=== PATIENT | female | born 1960 | race Caucasian/White ===

== ENCOUNTER → 2020-04-07 13:58 | Outpatient (CLI) | payer OTHER, SELFPAY ==
--- NOTE | ~2020-04-07 | US_ITS ---
EXAMINATION: US thyroid DATE: 04/07/2020 14:32 INDICATION: Goiter. TECHNIQUE: Multiple ultrasound images of the thyroid were obtained. COMPARISON: Thyroid ultrasound 01/01/2019 FINDINGS: The right thyroid lobe measures 3.9 x 1.3 x 1.2 cm. The left thyroid lobe measures 4.1 x 1.2 x 1.4 c m. In the right thyroid lobe, there is a 9 mm solid, very hypoechoic, agrdo-fvbr-sndh nodule with il l-defined margin without echogenic foci (TI-RADS TR4). In the left thyroid lobe, there is a 1.4 cm so lid, hypoechoic, gkcme-qnjg-wshy nodule with ill-defined margin without echogenic foci (TR4). These f indings were not described on the prior ultrasound, but the thyroid was diffusely heterogeneous on th e prior ultrasound. IMPRESSION: 1. Thyroid nodules. Thyroid ultrasound is recommended in one year. Reviewed, dictated and finalized at location B.
== END ==
PROVIDERS: PCP Family Medicine; Visit Provider Internal Medicine Endocrinology, Diabetes & Metabolism
DX: E04.2 Nontoxic multinodular goiter (principal)
CPT/HCPCS: 76536

== ENCOUNTER → 2020-06-02 10:41 | Outpatient (CLI) | payer OTHER, SELFPAY ==
--- NOTE | ~2020-06-02 | MM_ITS ---
EXAMINATION: MM screening [facility] w shanae HISTORY: Screening TECHNIQUE: Craniocaudal and mediolateral oblique 3-D tomosynthesis images were obtained and synthetic 2-D images were generated. CAD analysis was submitted and interpreted. COMPARISON: Comparison to multiple prior studies sequentially, with oldest reviewed study dated 05/26. BREAST PARENCHYMAL COMPOSITION: There are scattered areas of fibroglandular density. FINDINGS: Stable right breast asymmetry with adjacent tissue marker. There is no evidence of suspicio us mass, calcification, or architectural distortion to suggest malignancy in either breast. There has been no suspicious interval change. IMPRESSION: 1. No mammographic evidence of malignancy. 2. Recommend routine screening mammography in one year. BI-RADS Category 1: Negative Reviewed, dictated and finalized at location A.
== END ==
PROVIDERS: PCP Family Medicine; Visit Provider Obstetrics & Gynecology
DX: Z12.31 Encounter for screening mammogram for malignant neoplasm of breast (principal)
CPT/HCPCS: 77063; 77067

== ENCOUNTER → 2022-06-21 13:20 | Outpatient (CLI) | payer OTHER, SELFPAY ==
--- NOTE | ~2022-06-21 | MM_ITS ---
EXAMINATION: MM screening [facility] BI w shanae HISTORY: Screening mammogram TECHNIQUE: Craniocaudal and mediolateral oblique 3-D tomosynthesis images were obtained and synthetic 2-D images were generated. CAD analysis was submitted and interpreted. COMPARISON: 06/02/2020, 01/13/2019, 10/25/2016, 10/16/2016 BREAST PARENCHYMAL COMPOSITION: The breasts are heterogeneously dense, which may obscure small masses . FINDINGS: There is a stable mass with biopsy change in the lower inner right breast. No suspicious ma ss, calcification, or architectural distortion are identified in either breast to suggest malignancy. There has been no suspicious interval change. IMPRESSION: 1. No mammographic evidence of malignancy. 2. Recommend routine screening mammography in one year. BI-RADS Category 2: Benign finding(s). Reviewed, dictated and finalized at location A.
--- NOTE | ~2022-06-21 | DEXA_ITS ---
Bone Density Report Name: RUBIO CABRERA Age: 61 Sex: Female Ethnicity: White Date of : 1960 Indication: osteopenia; height loss; hysterectomy; postmenopausal Referring Provider: Shagufta Carlson Study: Bone densitometry was performed. Exam Date: June 21, 2022 Accession number: [id number] Bone Density: Region BMD T-score Z-score Classification AP Spine (L1-L4) 0.912 -1.2 0.4 Osteopenia Femoral Neck (Left) 0.549 -2.7 -1.3 Osteoporosis Total Hip (Left) 0.749 -1.6 -0.5 Osteopenia Femoral Neck (Right) 0.571 -2.5 -1.1 Osteoporosis Total Hip (Right) 0.780 -1.3 -0.2 Osteopenia Total Hip Mean 0.765 -1.5 -0.4 Osteopenia World Health Organization criteria for BMD impression classify patients as: Normal (T-score at or above -1.0), Osteopenia (T-score between -1.0 and -2.5), or Osteoporosis (T-score at or below -2.5). 10-year Fracture Risk: FRAX not reported because: Some T-score for Spine Total or Hip Total or Femoral Neck at or below -2.5 Previous Exams: Region Exam Age BMD T-score BMD Change BMD Change Date g/cm2 vs Baseline vs Previous AP Spine(L1-L4) 06/21/2022 61 0.912 -1.2 -0.071* -0.006 04/06/2019 58 0.918 -1.2 -0.065* -0.065* 10/08/2012 51 0.984 -0.6 Total Hip(Left) 06/21/2022 61 0.749 -1.6 -0.157* -0.021 04/06/2019 58 0.769 -1.4 -0.136* -0.136* 10/08/2012 51 0.906 -0.3 Total Hip(Right) 06/21/2022 61 0.780 -1.3 -0.121* -0.041* 04/06/2019 58 0.821 -1.0 -0.081* -0.081* 10/08/2012 51 0.901 -0.3 *Denotes significance at 95% confidence level, LSC for AP Spine = 0.022 g/cm2, LSC for Total Hip = 0.027 g/cm2 Clinical Information Provided by Patient: Has the following medical conditions: Hysterectomy Patient maximum height was 65 Menopause Age: 49 No regular weight bearing exercise Drinks caffeinated beverages Onset of menses at age 11 Number of children 2 Impression: The patient has osteoporosis, based on the Left Femoral Neck T-score. The BMD for the Total Hip(Right) decreased, changing by -0.041 since the last DXA exam. Discussion: INCREASED RISK OF FRACTURE. BONE DENSITY IS UNDESIRABLY LOW AT ONE OR MORE SKELETAL SITES, CONSISTENT WITH POSTMENOPAUSAL OSTEOPOROSIS. This patient's lowest T-score meets the World Health Organization's (WHO) criteria for osteoporosis at one or more sites (T-score -2.5 or below). In
== END ==
PROVIDERS: PCP Obstetrics & Gynecology; Visit Provider Family Medicine
DX: Z12.31 Encounter for screening mammogram for malignant neoplasm of breast (principal); Z78.0 Asymptomatic menopausal state; M85.89 Other specified disorders of bone density and structure, multiple sites; M81.0 Age-related osteoporosis without current pathological fracture
CPT/HCPCS: 77063; 77067; 77080

== ENCOUNTER → 2022-07-15 10:36 | Outpatient (CLI) | payer OTHER, SELFPAY ==
--- NOTE | ~2022-07-15 | XR_ITS ---
EXAMINATION: [id number] Exam Date/Time: 07/15/2022 11:00 BIOCHEMISTRY TECHNOLOGIST HISTORY: ANTERIOR LEFT RIB PAIN AFTER FALL 2 WKS AGO Comparison: None available. RESULT: Lines, tubes, and devices: Surgical clips in the right lower neck. Lungs and pleura: Clear. Cardiomediastinal silhouette: Unremarkable. Other: No acute upper abdominal finding. Mild cortical irregularity of the left eighth anterior rib IMPRESSION: Nondisplaced left eighth anterior rib fracture. Reviewed, dictated and finalized at location K. HEMISTRY TECHNOLOGIST
== END ==
PROVIDERS: PCP Family Medicine; Visit Provider Family Medicine
DX: R07.81 Pleurodynia (principal); S22.32XA Fracture of one rib, left side, initial encounter for closed fracture
CPT/HCPCS: 71101

== ENCOUNTER → 2023-01-03 14:53 | Outpatient (CLI) | payer OTHER, SELFPAY ==
--- NOTE | ~2023-01-03 | XR_ITS ---
EXAMINATION: XR chest 2V 01/03/2023 15:13 INDICATION: Shortness of breath PROCEDURE: 2 view chest COMPARISON: 07/15/2022 FINDINGS: The lungs are clear. The cardiomediastinal silhouette is within normal limits. There are no pleural effusions. There is no pneumothorax suspected. IMPRESSION: 1: NO ACUTE CARDIOPULMONARY DISEASE. Reviewed, dictated and finalized at location B.
== END ==
PROVIDERS: PCP Family Medicine; Visit Provider Nurse Practitioner Family
DX: J40 Bronchitis, not specified as acute or chronic (principal); R06.02 Shortness of breath
CPT/HCPCS: 71046

== ENCOUNTER → 2023-07-29 15:32 | Outpatient (CLI) | payer OTHER, SELFPAY ==
--- NOTE | ~2023-07-29 | XR_ITS ---
Right foot Technique: AP, oblique, and lateral views were obtained. Clinical History: Polyarthralgia Findings: No acute fracture or dislocation is seen. Hallux valgus noted. Joint spaces are preserved w ithout erosive or degenerative change. Soft tissues are unremarkable. Impression: Hallux valgus. Reviewed, dictated and finalized at location . ISH PROFESSOR Impression: Hallux valgus.
--- NOTE | ~2023-07-29 | XR_ITS ---
Right Hand Technique: PA, oblique, and lateral views were obtained. Clinical History: Polyarthralgia Findings: No acute fracture or dislocation is seen. There is advanced osteoarthritis throughout the p roximal interphalangeal joints of the hand, as well as the interphalangeal joint of the thumb. There are mild degenerative changes of the DIP joints. Soft tissues are unremarkable. Impression: Advanced osteoarthritis throughout the PIP joints and interphalangeal joint of the thumb. Minimal degenerative change of the DIP joints. Reviewed, dictated and finalized at location M. L INSPECTOR BALANCE WHEEL Impression: Advanced osteoarthritis throughout the PIP joints and interphalangeal joint of the thumb. Minimal degenerative change of the DIP joints.
--- NOTE | ~2023-07-29 | XR_ITS ---
Left foot Technique: AP, oblique, and lateral views were obtained. Clinical History: Polyarthralgia Findings: No acute fracture or dislocation is seen. Hallux valgus noted, with mild degenerative meraz e of the first MTP joint region. Remaining joint spaces are preserved without erosive or degenerative change. Soft tissues are unremarkable. Impression: Hallux valgus comment with mild degenerative change at the first MTP joint region. Reviewed, dictated and finalized at location M. RICT ASSOCIATE JUDGE Impression: Hallux valgus comment with mild degenerative change at the first MTP joint joanna on.
--- NOTE | ~2023-07-29 | XR_ITS ---
Left Hand Technique: PA, oblique, and lateral views were obtained. Clinical History: Polyarthralgia Findings: No acute fracture or dislocation is seen. There is advanced osteoarthritis throughout the p roximal and distal interphalangeal joints of the hand, with possible element of erosive osteoarthriti s noted. Soft tissues are unremarkable. Impression: Advanced osteoarthritis throughout the interphalangeal joints of the hand, with possible element of e rosive osteoarthritis present. Reviewed, dictated and finalized at location M. R Impression: Advanced osteoarthritis throughout the interphalangeal joints of the hand, with possible element of erosive osteoarthritis present.
== END ==
DX: M19.042 Primary osteoarthritis, left hand (principal); M19.041 Primary osteoarthritis, right hand; M20.12 Hallux valgus (acquired), left foot; M20.11 Hallux valgus (acquired), right foot
CPT/HCPCS: 73130; 73630

== ENCOUNTER 2023-11-17 13:50 | Outpatient (CLI) | payer BC, SELFPAY ==
--- NOTE | ~2023-11-17 | MM_ITS ---
EXAMINATION: MM screening [facility] w shanae HISTORY: Screening mammogram TECHNIQUE: Craniocaudal and mediolateral oblique 3-D tomosynthesis images were obtained and synthetic 2-D images were generated. CAD analysis was submitted and interpreted. COMPARISON: 06/21/2022, 06/02/2020, 01/13/2019 bilateral screening mammogram examinations BREAST PARENCHYMAL COMPOSITION: There are scattered areas of fibroglandular density. FINDINGS: Biopsy marker on the right; history of 3 prior benign right breast biopsies. There is no ev idence of suspicious mass, calcification, or architectural distortion to suggest malignancy in either breast. There has been no suspicious interval change. IMPRESSION: 1. No mammographic evidence of malignancy. 2. Recommend routine screening mammography in one year. BI-RADS Category 1: Negative Reviewed, dictated and finalized at location A.
== END 2023-11-17 13:51 ==
LOC: MICIMG 13:52
PROVIDERS: PCP Family Medicine; Visit Provider Obstetrics & Gynecology
DX: Z12.31 Encounter for screening mammogram for malignant neoplasm of breast (principal)
CPT/HCPCS: 77063; 77067

== ENCOUNTER 2025-03-08 14:10 | Outpatient (CLI) | payer MEDICARE, SELFPAY ==
--- NOTE | ~2025-03-08 | MM_ITS ---
EXAMINATION: MM screening [facility] w shanae HISTORY: Screening TECHNIQUE: Craniocaudal and mediolateral oblique 3-D tomosynthesis images were obtained and synthetic 2-D images were generated. CAD analysis was submitted and interpreted. COMPARISON: Comparison to multiple prior studies sequentially, with oldest reviewed study dated 10/16. BREAST PARENCHYMAL COMPOSITION: Not dense: There are scattered areas of fibroglandular density. FINDINGS: There is no evidence of suspicious mass, calcification, or architectural distortion to sugg est malignancy in either breast. There has been no suspicious interval change. IMPRESSION: 1. No mammographic evidence of malignancy. 2. Recommend routine screening mammography in one year. BI-RADS Category 1: Negative Reviewed, dictated and finalized at location B.
== END 2025-03-08 14:11 | disposition home or self-care (01) ==
PROVIDERS: PCP Obstetrics & Gynecology; Visit Provider Nurse Practitioner
DX: Z12.31 Encounter for screening mammogram for malignant neoplasm of breast (principal)
CPT/HCPCS: 77063; 77067

== ENCOUNTER 2025-07-05 09:19 | Outpatient (CLI) | payer MEDICARE, SELFPAY ==
--- NOTE | ~2025-07-05 | DEXA_ITS ---
Bone Density Report Name: RUBIO CABRERA Age: 64 Sex: Female Ethnicity: White Date of : 1960 Indication: osteopenia; monitoring treatment; height loss; cancer; hysterectomy; Referring Provider: Shagufta Carlson Study: Bone densitometry was performed. Exam Date: July 05, 2025 Accession number: [id number] Bone Density: Region BMD T-score Z-score Classification AP Spine(L1-L4) 0.915 -1.2 0.6 Osteopenia Femoral Neck (Left) 0.542 -2.8 -1.2 Osteoporosis Total Hip (Left) 0.748 -1.6 -0.3 Osteopenia Femoral Neck (Right) 0.536 -2.8 -1.3 Osteoporosis Total Hip (Right) 0.758 -1.5 -0.3 Osteopenia Total Hip Mean 0.753 -1.6 -0.3 Osteopenia World Health Organization criteria for BMD impression classify patients as: Normal (T-score at or above -1.0), Osteopenia (T-score between -1.0 and -2.5), or Osteoporosis (T-score at or below -2.5). 10-year Fracture Risk: FRAX not reported because: Some T-score for Spine Total or Hip Total or Femoral Neck at or below -2.5 Treated for osteoporosis Previous Exams: -- Region Exam Age BMD T-score BMD Change BMD Change Date g/cm2 vs Baseline vs Previous -- AP Spine (L1-L4) 07/05/2025 64 0.915 -1.2 -7.0%* 0.3% 06/21/2022 61 0.912 -1.2 -7.3%* -0.7% 04/06/2019 58 0.918 -1.2 -6.6%* -6.6%* 10/08/2012 51 0.984 -0.6 Total Hip(Left) 07/05/2025 64 0.748 -1.6 -17.4%* -0.1% 06/21/2022 61 0.749 -1.6 -17.4%* -2.7% 04/06/2019 58 0.769 -1.4 -15.1%* -15.1%* 10/08/2012 51 0.906 -0.3 Total Hip(Right) 07/05/2025 64 0.758 -1.5 -16.0%* -2.9% 06/21/2022 61 0.780 -1.3 -13.4%* -4.9%* 04/06/2019 58 0.821 -1.0 -8.9%* -8.9%* 10/08/2012 51 0.901 -0.3 -- *Denotes significance at 95% confidence level, LSC for AP Spine = 0.022 g/cm2, LSC for Total Hip = 0.027 g/cm2 Clinical Information Provided by Patient: Is being treated for osteoporosis Has used the following medications: Vitamin D, Calcium Has the following medical conditions: Cancer, Hysterectomy, Type 1 DM, melanoma Patient maximum height was 66 Menopause Age: 49 No regular weight bearing exercise Drinks caffeinated beverages Onset of menses at age 12 Number of children 2 Impression: The patient has osteoporosis, based on the Left Femoral Neck T-score. No significant bone loss was observed. Discussion: PATIENT UNDER TREATMENT WITH NO SIGNIFICANT BMD LOSS SINCE LAST EXAM. In an untreated patient, BMD typically declines with age. A lack of decline or gain is usually a sign that treatment is efficacious and fracture risk is reduced. It is important to ask patients whether they are taking their medications and to encourage continued and appropriate compliance with their osteoporosis therapies to reduce fracture risk. It is also important to review their risk factors and encourage appropriate calcium and vitamin D intakes, exercise, fall prevention and other lifestyle measures. Follow-Up: Consider a repeat BMD and Vertebral Fracture Assessment (VFA) exam in 2 years or sooner if medically necessary, to reassess this patient's status. Reported by: BETY on 07/05/2025 10:05:00 AM. Reviewed, dictated and finalized at location A.
== END 2025-07-05 09:20 | disposition home or self-care (01) ==
LOC: MICIMG 09:20
PROVIDERS: PCP Family Medicine; Visit Provider Family Medicine
DX: M85.88 Other specified disorders of bone density and structure, other site (principal); M81.0 Age-related osteoporosis without current pathological fracture; M85.852 Other specified disorders of bone density and structure, left thigh; M85.851 Other specified disorders of bone density and structure, right thigh
CPT/HCPCS: 77080